=== PATIENT | female | born 1990 | race Caucasian/White ===

== ENCOUNTER 2019-04-23 18:59 | Emergency (ER) | payer OTHER ==
[2019-04-23] MEDS ORDERED: Morphine 4 MG/ML VIAL ONE (19:24)
--- NOTE | 2019-04-23 19:52 | RAD ---
RIGHT TIBIA AND FIBULA TWO VIEWS: 04/23/19 HISTORY: Pain, trauma. FINDINGS: Mildly displaced distal tibia diaphyseal fracture. No additional fractures. IMPRESSION: Distal tibial diaphyseal fracture. POS: [facility]
== END 2019-04-23 21:07 | disposition home or self-care (01) ==
LOC: MADERS 18:59
DX: S82.201A Unspecified fracture of shaft of right tibia, initial encounter for closed fracture (principal); D50.9 Iron deficiency anemia, unspecified; G40.909 Epilepsy, unspecified, not intractable, without status epilepticus; Z79.899 Other long term (current) drug therapy; X50.9XXA Other and unspecified overexertion or strenuous movements or postures, initial encounter
CPT/HCPCS: 29515; 96372; J2270

== ENCOUNTER 2019-10-01 16:46 | Emergency (ER) | payer OTHER | END 2019-10-01 17:10 | disposition home or self-care (01) | LOC: MADERS 16:46 | DX: K04.7 Periapical abscess without sinus (principal); K05.00 Acute gingivitis, plaque induced; G40.909 Epilepsy, unspecified, not intractable, without status epilepticus; K02.9 Dental caries, unspecified; Z79.899 Other long term (current) drug therapy | CPT/HCPCS: 99283 ==

== ENCOUNTER 2021-02-18 13:03 | Emergency (ER) | payer OTHER ==
[2021-02-18] MEDS ORDERED: HYDROcodone/Acetaminophen 5/325 mg Tablet ONE (13:54)
[2021-02-18] MEDS ORDERED: Ibuprofen 800 MG TAB ONE (13:55)
[2021-02-18] MEDS ORDERED: AMOXicillin 250 MG CAP ONE (13:55)
== END 2021-02-18 14:01 | disposition home or self-care (01) ==
LOC: MADERS 13:03
DX: K04.7 Periapical abscess without sinus (principal); K05.10 Chronic gingivitis, plaque induced; K02.9 Dental caries, unspecified; G40.909 Epilepsy, unspecified, not intractable, without status epilepticus; Z79.899 Other long term (current) drug therapy
CPT/HCPCS: 99282

== ENCOUNTER 2021-02-19 23:56 | Emergency (ER) | payer OTHER ==
[~2021-02-19 23:56] MED LIST: Iopamidol 370 76% 100 ML VIAL ONE
[2021-02-20] MEDS ORDERED: Morphine 4 MG/ML VIAL ONE (00:41)
[2021-02-20] MEDS ORDERED: Ondansetron PF 4 MG/2 ML Vial ONE (00:41)
== END 2021-02-20 01:45 | disposition home or self-care (01) ==
LOC: MADERS 23:56
DX: A69.1 Other Vincent's infections (principal); G40.909 Epilepsy, unspecified, not intractable, without status epilepticus; R11.0 Nausea; Z79.899 Other long term (current) drug therapy
CPT/HCPCS: 70491; 96374; 96375; J2270; J2405; Q9967